=== PATIENT | male | born 1965 | race African-American/Black ===

== ENCOUNTER 2016-07-14 11:47 | Inpatient (IN) | payer OTHER ==
[2016-07-14 13:00] VITALS: BMI 25.5
--- NOTE | 2016-07-14 13:53 | HP ---
COWS - Scale Resting Pulse: 0= [place] 80 or Below Sweatin=Flushed/Facial Moisture Restless Observation: 1= Difficult to Sit Still Pupil Size: 0= Normal to Room Light Bone or Joint Aches: 2= Severe Diffuse Aches Runny Nose/ Eye Tearin= Runny Nose/Eyes GI Upset > 30mins: 1= Stomach Cramp Tremor Observation: 2= Slight Tremor Visible Yawning Observation: 2= >3x During Session Anxiety or Irritability: 2=Irritable/Anxious Goose Flesh Skin: 3=Piloerection COWS Score: 17 Admission ROS S - HPI Chief Complaint: I want detox and stay sober. Allergies/Adverse Reactions: Allergies Allergy/AdvReac Type Severity Reaction Status Date / Time No Known Allergies Allergy Verified 07/14/16 13:41 History of Present Illness: pt is a 50yr old male with a history of heroin and cocaine dependence seeking detox for treatment. Exam Limitations: No Limitations - Ebola screening Have you traveled outside of the country in the last 21 days: No Have you had contact with anyone from an Ebola affected area: No Have you been sick,other than usual withdrawal symptoms: No Do you have a fever: No - Review of Systems Constitutional: Diaphoresis, Night Sweats EENT: reports: No Symptoms Reported Respiratory: reports: No Symptoms reported Cardiac: reports: No Symptoms Reported GI: reports: Poor Appetite, Poor Fluid Intake : reports: No Symptoms Reported Musculoskeletal: reports: No Symptoms Reported Integumentary: reports: Flushing, Sweating Neuro: reports: Tingling, Tremors Endocrine: reports: Excessive Sweating, Flushing, Intolerance to Cold, Intolerance to Heat Hematology: reports: No Symptoms Reported Psychiatric: reports: Judgement Intact, Mood/Affect Appropiate, Orientated x3, Agitated, Anxious Other Systems: Reviewed and Negative Patient History - Patient Medical History Hx Anemia: No Hx Asthma: No Hx Chronic Obstructive Pulmonary Disease (COPD): No Hx Cancer: No Hx Cardiac Disorders: No Hx Congestive Heart Failure: No Hx Hypertension: No Hx Hypercholesterolemia: No Hx Pacemaker: No HX Cerebrovascular Accident: No Hx Seizures: No Hx Dementia: No Hx Diabetes: No Hx Gastrointestinal Disorders: No Hx Liver Disease: No Hx Genitourinary Disorders: No Hx Sexually Transmitted Disorders: No Hx Renal Disease (ESRD): No Hx Thyroid Disease: No Hx Human Immunodeficiency Virus (HIV): No (negative) Hx Hepatitis C: No (negative) Hx Depression: Yes Hx Suicide Attempt: No (denies) Hx Bipolar Disorder: No Hx Schizophrenia: No - Patient Surgical History Past Surgical History: No - PPD History Previous Implant?: Yes Documented Results: Negative w/o proof PPD to be Administered?: Yes - Reproductive History Patient is a Female of Child Bearing Age (11 -55 yrs old): No - Smoking Cessation Smoking history: Current every day smoker Have you smoked in the past 12 months: Yes Aproximately how many cigarettes per day: 10 Hx Chewing Tobacco Use: No Initiated information on smoking cessation: Yes 'Breaking Loose' booklet given: 07/14/16 - Substance & Tx. History Hx Alcohol Use: No Hx Substance Use: Yes Substance Use Type: Heroin Hx Substance Use Treatment: Yes - Substances Abused Heroin Route: Injection Frequency: Daily Amount used: 1 gm. Age of first use: 19 Date of Last Use: 07/14/16 Crack Route: Smoking Frequency: 1-2 times per week Amount used: $10 Age of first use: 19 Date of Last Use: 07/12/16 Family Disease History - Family Disease History Family History: Denies Admission Physical Exam S - Vital Signs Vital Signs: Vital Signs - 24 hr 07/14/16 12:57 Temperature 96 F L Pulse Rate 73 Respiratory 20 Rate Blood Pressure 120/73 - Physical General Appearance: Yes: Appropriately Dressed, Moderate Distress, Tremorous, Irritable, Sweating, Anxious HEENTM: Yes: Hearing grossly Normal, Normal Voice, Nasal Congestion Respiratory: Yes: No Respiratory Distress, Wheezing Neck: Yes: No masses,lesions,Nodules Breast: Yes: Within Normal Limits Cardiology: Yes: Regular Rhythm, Regular Rate, S1, S2 Abdominal: Yes: Normal Bowel Sounds, Non Tender, Flat, Soft Genitourinary: Yes: Within Normal Limits Back: Yes: Normal Inspection Musculoskeletal: Yes: full range of Motion Extremities: Yes: Normal Inspection, Non-Tender, Tremors Neurological: Yes: Fully Oriented, Normal Response Integumentary: Yes: Normal Color, Diaphoresis, Track Colon Lymphatic: Yes: Within Normal Limits - Diagnostic (1) Opioid dependence with withdrawal Current Visit: Yes Status: Chronic (2) Cocaine dependence Current Visit: Yes Status: Chronic Qualifiers: Substance use status: uncomplicated Qualified Code(s): F14.20 - Cocaine dependence, uncomplicated Cleared for Admission [facility] - Detox or Rehab [facility] Level of Care: Medically Managed Detox Regimen/Protocol: Methadone [facility] Breath Alcohol Content Breath Alcohol Content: 0 Urine Drug Screen - Results Drug Screen Negative: No Urine Drug Screen Results: LESA-Cocaine, OPI-Opiates, OXY-Oxycodone
[2016-07-14] MEDS ORDERED: hydrOXYzine PAMOATE 50 MG CAPSULE (FP) PO PRN (13:57)
[2016-07-14] MEDS ORDERED: ACETAMINOPHEN 325 MG TABLET (FP) PO PRN (13:57)
[2016-07-14] MEDS ORDERED: NICOTINE POLACRILEX 4 MG GUM BUC PRN (13:57)
[2016-07-14] MEDS ORDERED: IBUPROFEN 400 MG TABLET (FP) PO PRN (13:57)
[2016-07-14] MEDS ORDERED: MAGNESIUM HYDROX 2400MG/30ML ORAL SUSPENSION 30 ML CUP PO PRN (13:57)
[2016-07-14] MEDS ORDERED: MAGNESIUM CITRATE 300 ML BOTTLE PO PRN (13:57)
[2016-07-14] MEDS ORDERED: LOPERAMIDE HCL 2 MG CAPSULE PO PRN (13:57)
[2016-07-14] MEDS ORDERED: MAG HYDROX/AL HYDROX/SIMETH 30 ML UNIT-DOSE CUP PO PRN (13:57)
[2016-07-14] MEDS ORDERED: guaiFENesin/D-METHORPHAN HB 10 ML UNIT-DOSE CUPS PO PRN (13:57)
[2016-07-14] MEDS ORDERED: MENTHOL/PHENOL 1 EACH UD MM PRN (13:57)
[2016-07-14] MEDS ORDERED: P-EPHED 60MG/TRIPROLIDI 2.5MG TABLET PO PRN (13:57)
[2016-07-14] MEDS ORDERED: ALBUTEROL SO4 2.5/IPRATROPIUM 0.5 INH SOL 3 ML VIAL.NEB. NEB PRN (14:01)
--- NOTE | 2016-07-14 14:14 | CONSULT ---
[facility] Psychiatric Consult - Data Date of interview: 07/14/16 Admission source: [facility] Identifying data: This is 50 years old male with no psychiatric hospitalization history intoxicated with: Alcohol, Crack and Heroin Substance Abuse History: - Smoking Cessation. Smoking history: Current every day smoker. Have you smoked in the past 12 months: Yes. Aproximately how many cigarettes per day: 10. Hx Chewing Tobacco Use: No. Initiated information on smoking cessation: Yes. 'Breaking Loose' booklet given: 07/14/16. - Substance & Tx. History. Hx Alcohol Use: No. Hx Substance Use: Yes. Substance Use Type : Heroin. Hx Substance Use Treatment: Yes. - Substances Abused. Heroin. Route: Injection. Frequency: Daily. Amount used: 1 gm. Age of first use: 19. Date of Last Use: 07/14/16. Crack. Route: Smoking. Frequency: 1-2 times per week. Amount used: $10. Age of first use: 19. Date of Last Use: 07/12/16 Medical History: Denies any significant medical issues Psychiatric History: Reports history of depression., reportsa no medicqations taking prior to admission Physical/Sexual Abuse/Trauma History: Denies Additional Comment: Observation. Detox Unit Care protocol Mental Status Exam - Mental Status Exam Alert and Oriented to: Person Cognitive Function: Fair Patient Appearance: Well Groomed Mood: Apprehensive Affect: Mood Congruent Patient Behavior: Cooperative Speech Pattern: Appropriate Voice Loudness: Normal Thought Process: Goal Oriented Thought Disorder: Being Controlled Hallucinations: Denies Suicidal Ideation: Denies Homicidal Ideation: Denies Insight/Judgement: Fair Sleep: Difficulty falling asleep Appetite: Fair Muscle strength/Tone: Normal Gait/Station: Normal Additional Comments: Observation. Detox Unit Care protocol Psychiatric Findings - Problem List ([place] 1, 2,3) (1) Cocaine dependence Current Visit: Yes Status: Chronic Qualifiers: Substance use status: uncomplicated Qualified Code(s): F14.20 - Cocaine dependence, uncomplicated (2) Opioid dependence with withdrawal Current Visit: Yes Status: Chronic (3) Alcohol dependence Current Visit: Yes Status: Acute (4) Drug-induced mood disorder Current Visit: Yes Status: Acute - Initial Treatment Plan Initial Treatment Plan: Observation. Detox Unit Care protocol
[2016-07-14] MEDS ORDERED: ALBUTEROL SO4 2.5/IPRATROPIUM 0.5 INH SOL 3 ML VIAL.NEB. NEB ONE (14:20)
[2016-07-14] MEDS ORDERED: METHADONE HCL 10 MG TABLET (FOR DETOX USE ONLY) PO ONE ×2 (14:21→23:00)
[2016-07-14] MEDS: diazePAM 5 MG TABLET PO PRN ×2 (15:07→22:43)
[2016-07-14] MEDS: THIAMINE HCL 100 MG TABLET (FP) PO SCH (22:43)
--- NOTE | 2016-07-15 00:27 | EKG ---
Test Reason : Blood Pressure : / mmHG Vent. Rate : 059 BPM Atrial Rate : 059 BPM P-R Int : 140 ms QRS Dur : 090 ms QT Int : 426 ms P-R-T Axes : 062 055 050 degrees QTc Int : 421 ms SINUS BRADYCARDIA OTHERWISE NORMAL ECG NO PREVIOUS ECGS AVAILABLE Confirmed by TIFFANIE ZAMORA MD ([id number]) on 07/15/2016 12:27:33 AM Referred By: Confirmed By:TIFFANIE ZAMORA MD
[2016-07-15] MEDS: diazePAM 5 MG TABLET PO PRN ×2 (05:53→10:29)
[2016-07-15] MEDS ORDERED: METHADONE HCL 10 MG TABLET (FOR DETOX USE ONLY) PO ONE (10:00)
[2016-07-15] MEDS: NICOTINE 21 MG/24 HOURS TOPICAL PATCH TD SCH (10:29)
[2016-07-15] MEDS: PRENATAL VITAMINS W/ FOLIC ACID TABLET (FP) PO SCH (10:29)
--- NOTE | 2016-07-15 10:46 | PN ---
BHS COWS - Scale Resting Pulse: 0= [place] 80 or Below Sweatin= Chills/Flushing Restless Observation: 3= Extraneous Movement Pupil Size: 2= Moderately Dilated Bone or Joint Aches: 4=Acute Joint/Muscle Pain Runny Nose/ Eye Tearin= Nasal Congestion GI Upset > 30mins: 1= Stomach Cramp Tremor Observation of Outstretched Hands: 2= Slight Tremor Visible Yawning Observation: 2= >3x During Session Anxiety or Irritability: 2=Irritable/Anxious Goose Flesh Skin: 0=Smooth Skin COWS Score: 18 BHS Progress Note (SOAP) Subjective: ANXIETY,SWEATS/CHILLS, FATIGUE, INTERMITTENT SLEEP. Objective: 07/15/16 10:45 Vital Signs Temperature 97.7 F 07/15/16 10:41 Pulse Rate 74 07/15/16 10:41 Respiratory Rate 18 07/15/16 10:41 Blood Pressure 136/78 07/15/16 10:41 O2 Sat by Pulse Oximetry (%) LABS PENDING. Assessment: 07/15/16 10:46 WITHDRAWAL SX Plan: CONTINUE DETOX
[2016-07-15 16:00] LABS: URINE APPEARANCE SLCLOUDY; URINE BILIRUBIN NEGATIVE (NEGATIVE); URINE BLOOD NEGATIVE (NEGATIVE); URINE COLOR LTYELLOW; URINE GLUCOSE (UA) NEGATIVE (NEGATIVE); URINE KETONE NEGATIVE (NEGATIVE); URINE NITRITE NEGATIVE (NEGATIVE); URINE UROBILINOGEN NEGATIVE E.U./dl (0.2-1.0)
[2016-07-15 16:01] LABS: URINE LEUK ESTERASE 2+ (NEGATIVE); URINE PROTEIN 1+ (NEGATIVE)
[2016-07-15 16:06] LABS: URINE MUCUS RARE; URINE RBC 4 /hpf (0-3); URINE WBC 93 /hpf (3-5)
[2016-07-15] MEDS: THIAMINE HCL 100 MG TABLET (FP) PO SCH (22:41)
[2016-07-16] MEDS: diphenhydrAMINE HCL 50 MG CAPSULE PO PRN (00:26)
[2016-07-16] MEDS: diazePAM 5 MG TABLET PO PRN ×2 (00:26→10:40)
[2016-07-16] MEDS ORDERED: CYCLOBENZAPRINE HCL 10 MG TABLET (FP) PO PRN (02:35)
[2016-07-16] MEDS ORDERED: METHADONE HCL 5 MG TABLET (FOR DETOX USE ONLY) PO ONE (10:00)
--- NOTE | 2016-07-16 10:05 | PN ---
BHS COWS - Scale Resting Pulse: 0= [place] 80 or Below Sweatin= Chills/Flushing Restless Observation: 3= Extraneous Movement Pupil Size: 2= Moderately Dilated Bone or Joint Aches: 4=Acute Joint/Muscle Pain Runny Nose/ Eye Tearin= Nasal Congestion GI Upset > 30mins: 1= Stomach Cramp Tremor Observation of Outstretched Hands: 2= Slight Tremor Visible Yawning Observation: 2= >3x During Session Anxiety or Irritability: 2=Irritable/Anxious Goose Flesh Skin: 0=Smooth Skin COWS Score: 18 BHS Progress Note (SOAP) Subjective: ANXIETY,SWEATS,IRRITABILITY,RESTLESS,INTERMITTENT SLEEP,LOST APPETITE. Objective: 07/16/16 10:05 Vital Signs Temperature 97.9 F 07/16/16 09:50 Pulse Rate 56 L 07/16/16 09:50 Respiratory Rate 18 07/16/16 09:50 Blood Pressure 139/89 07/16/16 09:50 O2 Sat by Pulse Oximetry (%) Laboratory Last Values Urine Color Ltyellow 07/15/16 13:25 Urine Appearance Slcloudy 07/15/16 13:25 Urine pH 9.0 (5.0-8.0) H 07/15/16 13:25 Ur Specific [place] 1.015 (1.001-1.035) 07/15/16 13:25 Urine Protein 1+ (NEGATIVE) H 07/15/16 13:25 Urine Glucose (UA) Negative (NEGATIVE) 07/15/16 13:25 Urine Ketones Negative (NEGATIVE) 07/15/16 13:25 Urine Blood Negative (NEGATIVE) 07/15/16 13:25 Urine Nitrite Negative (NEGATIVE) 07/15/16 13:25 Urine Bilirubin Negative (NEGATIVE) 07/15/16 13:25 Urine Urobilinogen Negative E.U./dl (0.2-1.0) 07/15/16 13:25 Ur Leukocyte Esterase 2+ (NEGATIVE) H 07/15/16 13:25 Urine RBC 4 /hpf (0-3) 07/15/16 13:25 Urine WBC 93 /hpf (3-5) 07/15/16 13:25 Urine Mucus Rare 07/15/16 13:25 UA NOTED BLOOD WORK PENDING --UNABLE TO OBTAIN BLOOD FROM PT PER PHLEBOTOMY REPORT. "WILL TRY AGAIN". Assessment: 07/16/16 10:05 WITHDRAWAL SX Plan: CONTINUE DETOX INCREASE PO FLUIDS REPEAT UA;UC TODAY.
[2016-07-16] MEDS: PRENATAL VITAMINS W/ FOLIC ACID TABLET (FP) PO SCH (10:40)
[2016-07-16] MEDS: NICOTINE 21 MG/24 HOURS TOPICAL PATCH TD SCH (10:42)
[2016-07-16] MEDS: cloNIDine HCL 0.1 MG TABLET PO SCH ×2 (10:42→23:20)
[2016-07-16] MEDS: CYCLOBENZAPRINE HCL 10 MG TABLET (FP) PO SCH ×2 (13:42→23:20)
[2016-07-16 19:23] LABS: URINE APPEARANCE CLOUDY; URINE BILIRUBIN NEGATIVE (NEGATIVE); URINE COLOR YELLOW; URINE GLUCOSE (UA) 1+ (NEGATIVE); URINE KETONE 2+ (NEGATIVE); URINE NITRITE NEGATIVE (NEGATIVE); URINE UROBILINOGEN NEGATIVE E.U./dl (0.2-1.0)
[2016-07-16 19:29] LABS: URINE BLOOD 2+ (NEGATIVE); URINE LEUK ESTERASE 3+ (NEGATIVE); URINE PROTEIN 2+ (NEGATIVE)
[2016-07-16 19:36] LABS: URINE BACTERIA RARE /hpf (NONE SEEN); URINE MUCUS MANY; URINE RBC 100 /hpf (0-3); URINE WBC 239 /hpf (3-5)
[2016-07-16] MEDS: THIAMINE HCL 100 MG TABLET (FP) PO SCH (23:21)
[2016-07-17] MEDS: CYCLOBENZAPRINE HCL 10 MG TABLET (FP) PO SCH ×3 (06:07→23:02)
[2016-07-17] MEDS: diazePAM 5 MG TABLET PO PRN (06:07)
[2016-07-17] MEDS ORDERED: METHADONE HCL 5 MG TABLET (FOR DETOX USE ONLY) PO ONE (10:00)
[2016-07-17] MEDS: PRENATAL VITAMINS W/ FOLIC ACID TABLET (FP) PO SCH (10:57)
[2016-07-17] MEDS: cloNIDine HCL 0.1 MG TABLET PO SCH ×2 (10:57→23:02)
[2016-07-17] MEDS: NICOTINE 21 MG/24 HOURS TOPICAL PATCH TD SCH (10:58)
--- NOTE | 2016-07-17 11:36 | PN ---
BHS Progress Note (SOAP) Subjective: ANXIETY,TREMORS, SWEATS, DECREASED RESTLESSNESS, INTERMITTENT SLEEP. DENIES DYSURIA OR BURNING/PAIN ON URINATION. Objective: 07/17/16 11:36 Vital Signs Temperature 97.9 F 07/17/16 10:27 Pulse Rate 85 07/17/16 10:27 Respiratory Rate 18 07/17/16 10:27 Blood Pressure 111/75 07/17/16 10:27 O2 Sat by Pulse Oximetry (%) Laboratory Last Values Urine Color Yellow 07/16/16 15:23 Urine Appearance Cloudy 07/16/16 15:23 Urine pH 6.0 (5.0-8.0) D 07/16/16 15:23 Ur Specific [place] 1.023 (1.001-1.035) 07/16/16 15:23 Urine Protein 2+ (NEGATIVE) H 07/16/16 15:23 Urine Glucose (UA) 1+ (NEGATIVE) H 07/16/16 15:23 Urine Ketones 2+ (NEGATIVE) H 07/16/16 15:23 Urine Blood 2+ (NEGATIVE) H 07/16/16 15:23 Urine Nitrite Negative (NEGATIVE) 07/16/16 15:23 Urine Bilirubin Negative (NEGATIVE) 07/16/16 15:23 Urine Urobilinogen Negative E.U./dl (0.2-1.0) 07/16/16 15:23 Ur Leukocyte Esterase 3+ (NEGATIVE) H 07/16/16 15:23 Urine RBC 100 /hpf (0-3) 07/16/16 15:23 Urine WBC 239 /hpf (3-5) 07/16/16 15:23 Ur Epithelial Cells Rare /hpf (FEW) 07/16/16 15:23 Urine Bacteria Rare /hpf (NONE SEEN) 07/16/16 15:23 Urine Mucus Many 07/16/16 15:23 UA NOTED UC PENDING Assessment: 07/18/16 11:47 WITHDRAWAL SX Plan: CONTINUE DETOX. F/U UA;UC.
[2016-07-17] MEDS: THIAMINE HCL 100 MG TABLET (FP) PO SCH (23:02)
[2016-07-18] MEDS: LEVOFLOXACIN 250 MG TABLET (FP) PO SCH (06:09)
[2016-07-18] MEDS: CYCLOBENZAPRINE HCL 10 MG TABLET (FP) PO SCH ×3 (06:09→22:26)
[2016-07-18] MEDS ORDERED: METHADONE HCL 10 MG TABLET (FOR DETOX USE ONLY) PO ONE (10:00)
[2016-07-18] MEDS: PRENATAL VITAMINS W/ FOLIC ACID TABLET (FP) PO SCH (10:28)
[2016-07-18] MEDS: NICOTINE 21 MG/24 HOURS TOPICAL PATCH TD SCH (10:28)
[2016-07-18] MEDS: cloNIDine HCL 0.1 MG TABLET PO SCH ×2 (10:28→22:26)
--- NOTE | 2016-07-18 11:44 | PN ---
BHS Progress Note (SOAP) Subjective: ANXIETY,SWEATS/CHILLS. Objective: 07/18/16 11:38 Vital Signs Temperature 97.1 F L 07/18/16 10:47 Pulse Rate 77 07/18/16 10:47 Respiratory Rate 18 07/18/16 10:47 Blood Pressure 120/76 07/18/16 10:47 O2 Sat by Pulse Oximetry (%) Laboratory Tests 07/15/16 07/16/16 13:25 15:23 Urine Color Ltyellow Yellow Urine Appearance Slcloudy Cloudy Urine pH 9.0 H 6.0 D Ur Specific [place] 1.015 1.023 Urine Protein 1+ H 2+ H Urine Glucose (UA) Negative 1+ H Urine Ketones Negative 2+ H Urine Blood Negative 2+ H Urine Nitrite Negative Negative Urine Bilirubin Negative Negative Urine Urobilinogen Negative Negative Ur Leukocyte Esterase 2+ H 3+ H Urine RBC 4 100 Urine WBC 93 239 Ur Epithelial Cells Rare Urine Bacteria Rare Urine Mucus Rare Many UC: <10,000 CFU/ML Assessment: 07/18/16 11:38 WITHDRAWAL SX LEUCOCYTURIA LEUK NEIL OCCULT HEMATURIA Plan: CONTINUE DETOX CIPRO DIRECTED
[2016-07-18] MEDS: diphenhydrAMINE HCL 50 MG CAPSULE PO PRN (22:25)
[2016-07-18] MEDS: THIAMINE HCL 100 MG TABLET (FP) PO SCH (22:26)
[2016-07-19] MEDS: LEVOFLOXACIN 250 MG TABLET (FP) PO SCH (05:52)
[2016-07-19] MEDS: CYCLOBENZAPRINE HCL 10 MG TABLET (FP) PO SCH (05:52)
[2016-07-19] MEDS ORDERED: METHADONE HCL 5 MG TABLET (FOR DETOX USE ONLY) PO ONE (06:00)
[2016-07-19 09:38] VITALS: BP 108/69; PULSE 65; TEMP 96.2
--- NOTE | 2016-07-19 09:41 | DS ---
[facility] Detox Discharge Summary Admission Date: 07/14/16 Discharge Date: 07/19/16 - History Present History: Opioid Dependence Pertinent Past History: mood disorder - Physical Exam Results Vital Signs: Vital Signs Temperature 96.7 F L 07/19/16 07:11 Pulse Rate 72 07/19/16 07:11 Respiratory Rate 18 07/19/16 07:11 Blood Pressure 103/66 07/19/16 07:11 O2 Sat by Pulse Oximetry (%) Pertinent Admission Physical Exam Findings: Withdrawal sx. Microbiology 07/16/16 15:23 Urine Culture - Final Urine - Urine Clean Catch Microbiology 07/16/16 15:23 Urine - Urine Clean Catch Urine Culture - Final < 10,000 cfu - Treatment Hospital Course: Detox Protocol Followed, Detoxed Safely, Responded well, Discharged Condition Good, Rehab Referral Accepted - Medication Discharge Medications: Ambulatory Orders NK [No Known Home Medication] 07/14/16 - Diagnosis (1) Drug-induced mood disorder Current Visit: Yes Status: Acute (2) Cocaine dependence Current Visit: Yes Status: Chronic Qualifiers: Substance use status: uncomplicated Qualified Code(s): F14.20 - Cocaine dependence, uncomplicated (3) Opioid dependence with withdrawal Current Visit: Yes Status: Chronic - AMA Did Patient Leave Against Medical Advice: No
[2016-07-19] MEDS: NICOTINE 21 MG/24 HOURS TOPICAL PATCH TD SCH (10:26)
[2016-07-19] MEDS: PRENATAL VITAMINS W/ FOLIC ACID TABLET (FP) PO SCH (10:26)
[2016-07-19] MEDS: cloNIDine HCL 0.1 MG TABLET PO SCH (10:26)
== END 2016-07-19 12:07 | disposition other institution (70) | DRG 773 ==
LOC: YASAS 11:47 → Y3N 14:07
PROVIDERS: ADMIT Internal Medicine; ATTEND Internal Medicine
PROC: HZ2ZZZZ Detoxification Services for Substance Abuse Treatment (ICD-10-PCS; principal; 2016-07-19)
DX: F11.23 Opioid dependence with withdrawal (principal); F10.20 Alcohol dependence, uncomplicated; F14.20 Cocaine dependence, uncomplicated; F19.24 Other psychoactive substance dependence with psychoactive substance-induced mood disorder
CPT/HCPCS: 81003; 81015; 87086; 93005; 93010; 94640

== ENCOUNTER 2016-07-19 12:35 | Inpatient (IN) | payer OTHER ==
[2016-07-19] MEDS ORDERED: MAGNESIUM CITRATE 300 ML BOTTLE PO PRN (13:28)
[2016-07-19] MEDS ORDERED: IBUPROFEN 400 MG TABLET (FP) PO PRN (13:28)
[2016-07-19] MEDS ORDERED: P-EPHED 60MG/TRIPROLIDI 2.5MG TABLET PO PRN (13:28)
[2016-07-19] MEDS ORDERED: LOPERAMIDE HCL 2 MG CAPSULE PO PRN (13:28)
[2016-07-19] MEDS ORDERED: NICOTINE POLACRILEX 2 MG GUM BUC PRN (13:28)
[2016-07-19] MEDS ORDERED: MAGNESIUM HYDROX 2400MG/30ML ORAL SUSPENSION 30 ML CUP PO PRN (13:28)
[2016-07-19] MEDS ORDERED: MAG HYDROX/AL HYDROX/SIMETH 30 ML UNIT-DOSE CUP PO PRN (13:28)
[2016-07-19] MEDS ORDERED: ACETAMINOPHEN 325 MG TABLET (FP) PO PRN (13:28)
[2016-07-19] MEDS ORDERED: MENTHOL/PHENOL 1 EACH UD MM PRN (13:28)
[2016-07-19] MEDS ORDERED: guaiFENesin/D-METHORPHAN HB 10 ML UNIT-DOSE CUPS PO PRN (13:28)
--- NOTE | 2016-07-19 13:34 | HP ---
[facility] Rehab Assess/Revision - Admission History Admitted to Rehab from: [facility] Date of Admission to Rehab: 07/19/16 - Vital signs Vital Signs: Vital Signs Period Temp Pulse Resp BP Sys/Hoffmann Pulse Ox Last 24 Hr 97.7 F 73 18 106/62 - Findings Detox History & Physical reviewed: Yes Concur with findings: Yes
[2016-07-19] MEDS: diphenhydrAMINE HCL 50 MG CAPSULE PO PRN (21:39)
[2016-07-19] MEDS: THIAMINE HCL 100 MG TABLET (FP) PO SCH (21:39)
[2016-07-20] MEDS: LEVOFLOXACIN 500 MG TABLET (FP) PO SCH (06:49)
[2016-07-20] MEDS: NICOTINE 21 MG/24 HOURS TOPICAL PATCH TD SCH (09:44)
[2016-07-20] MEDS: PRENATAL VITAMINS W/ FOLIC ACID TABLET (FP) PO SCH (09:44)
[2016-07-20 10:41] LABS: ALBUMIN 3.7 g/dl (3.4-5.0); ALK PHOS 143 U/L (45-117); ANION GAP 11 (8-16); BILIRUBIN,TOTAL 0.5 mg/dL (0.2-1.0); CALCIUM 9.5 mg/dL (8.5-10.1); CO2 25 mmol/L (21-32); GLUCOSE,RANDOM 76 mg/dL (74-106); SGPT/ALT 30 U/L (12-78); TOT PROT 7.8 g/dl (6.4-8.2)
[2016-07-20 10:56] LABS: SGOT/AST 26 U/L (15-37)
[2016-07-20] MEDS: THIAMINE HCL 100 MG TABLET (FP) PO SCH (22:04)
[2016-07-21] MEDS: diphenhydrAMINE HCL 50 MG CAPSULE PO PRN (01:30)
[2016-07-21] MEDS: LEVOFLOXACIN 500 MG TABLET (FP) PO SCH (06:26)
[2016-07-21] MEDS: PRENATAL VITAMINS W/ FOLIC ACID TABLET (FP) PO SCH (09:35)
[2016-07-21] MEDS: NICOTINE 21 MG/24 HOURS TOPICAL PATCH TD SCH (09:36)
[2016-07-21] MEDS ORDERED: hydrOXYzine PAMOATE 50 MG CAPSULE (FP) PO PRN (13:55)
--- NOTE | 2016-07-21 14:04 | HP ---
[id number] Identifying data: This is the first 5N inpatient rehabilitation admission for this 50 year old black male father of 2, residing alone in the [place] apartment. Medical History: no major medcal issues, smokes cigarettes 1PPD. Psychiatric History: Patient reports history of treatment for anxiety and depression, states he was treated 3 years ago while in rehabilitation treatment, was on lexapro with fair response. He still anxious and depressed, unable to sleep and willing to restart medications, no history of psychiatric hospitalizations. Physical/Sexual Abuse/Trauma History: Denies history of sexual, physical and verbal abuse. Vital Signs: Vital Signs - 24 hr 07/21/16 07/21/16 07/21/16 00:30 03:30 06:44 Temperature 98.1 F Pulse Rate 56 L Respiratory 18 18 18 Rate Blood Pressure 120/84 Allergies/Adverse Reactions: Allergies Allergy/AdvReac Type Severity Reaction Status Date / Time No Known Allergies Allergy Verified 07/19/16 12:48 Date of last physical exam: 07/16/16 Concur with the findings of this exam: Yes - Substance Abuse/Tx History Hx Alcohol Use: No Hx Substance Use: Yes Substance Use Type: Cocaine ("every now and there"), Heroin (IV use 15 bags daily.) Hx Substance Use Treatment: Yes - Admission Criteria Previous failed treatment: Yes Poor recovery environment: Yes Comorbidities: No Lacks judgement: Yes Mental Status Exam - Mental Status Exam Alert and Oriented to: Time, Place, Person Cognitive Function: Good Patient Appearance: Well Groomed Mood: Depressed, Sad, Anxious Patient Behavior: Appropriate, Cooperative Speech Pattern: Clear, Appropriate Voice Loudness: Normal Thought Process: Intact, Goal Oriented Thought Disorder: Not Present Hallucinations: Denies Suicidal Ideation: Denies Homicidal Ideation: Denies Insight/Judgement: Fair Sleep: Poorly, Difficulty falling asleep Appetite: Poor, Weight loss Muscle strength/Tone: Normal Gait/Station: Normal Psychiatric Findings - Problem List ([place] 1, 2,3) (1) Cocaine dependence Current Visit: No Status: Chronic Qualifiers: Substance use status: uncomplicated Qualified Code(s): F14.20 - Cocaine dependence, uncomplicated (2) Opioid dependence Current Visit: Yes Status: Acute (3) CHELO (generalized anxiety disorder) Current Visit: Yes Status: Acute - Initial Treatment Plan Initial Treatment Plan: will restart Lexapro 10 mg po daily, Remeron 15 mg po hs , Vistaril 50 mg po q 4hrs for anxiety, side-effects/benefits discussed with the patient, will monitor progress as needed.
[2016-07-21 14:38] LABS: EOSINOPHIL 1.5 % (0-4.5); MCH 26.6 pg (25.7-33.7); MCHC 32.5 g/dl (32.0-35.9); MEAN CELL VOLUME 81.7 fl (80-96); MEAN PLT VOLUME 7.7 fl (7.5-11.1); NEUTROPHILS 65.7 % (42.8-82.8); PLATELET COUNT 263 K/MM3 (134-434); WHITE BLOOD COUNT 11.7 K/mm3 (4.0-10.0)
[2016-07-21] MEDS: MIRTAZAPINE 15 MG TABLET (FP) PO SCH (21:18)
[2016-07-21] MEDS: THIAMINE HCL 100 MG TABLET (FP) PO SCH (21:18)
[2016-07-21] MEDS: hydrOXYzine PAMOATE 50 MG CAPSULE (FP) PO PRN (21:18)
[2016-07-22] MEDS: LEVOFLOXACIN 500 MG TABLET (FP) PO SCH (06:23)
[2016-07-22] MEDS: PRENATAL VITAMINS W/ FOLIC ACID TABLET (FP) PO SCH (09:50)
[2016-07-22] MEDS: ESCITALOPRAM OXALATE 10 MG TABLET (FP) PO SCH (09:50)
[2016-07-22] MEDS: NICOTINE 21 MG/24 HOURS TOPICAL PATCH TD SCH (09:50)
[2016-07-22] MEDS: hydrOXYzine PAMOATE 50 MG CAPSULE (FP) PO PRN (14:37)
[2016-07-22] MEDS: THIAMINE HCL 100 MG TABLET (FP) PO SCH (21:22)
[2016-07-22] MEDS: MIRTAZAPINE 15 MG TABLET (FP) PO SCH (21:22)
[2016-07-22] MEDS: diphenhydrAMINE HCL 50 MG CAPSULE PO PRN (21:23)
[2016-07-23] MEDS: LEVOFLOXACIN 500 MG TABLET (FP) PO SCH (08:02)
[2016-07-23] MEDS: PRENATAL VITAMINS W/ FOLIC ACID TABLET (FP) PO SCH (09:52)
[2016-07-23] MEDS: ESCITALOPRAM OXALATE 10 MG TABLET (FP) PO SCH (09:53)
[2016-07-23] MEDS: NICOTINE 21 MG/24 HOURS TOPICAL PATCH TD SCH (09:53)
[2016-07-23] MEDS: hydrOXYzine PAMOATE 50 MG CAPSULE (FP) PO PRN ×3 (10:35→21:08)
--- NOTE | 2016-07-23 10:41 | PN ---
Psychiatric Progress Note Vital Signs: Vital Signs Period Temp Pulse Resp BP Sys/Hoffmann Pulse Ox Last 24 Hr 18-18 Date of Session: 07/23/16 Chief Complaint:: "insomnia" HPI: Patient is addressing cocaine, opioid dependence comorbid CHELO. ROS: WNL Current Medications: Active Medications Generic Name Dose Route Start Last Admin Trade Name Freq PRN Reason Stop Dose Admin Acetaminophen 650 mg 07/19/16 13:28 Tylenol - PO Q4H PRN FEVER OR PAIN Al Hydroxide/Mg Hydroxide 30 ml 07/19/16 13:28 Mylanta Oral Suspension - PO Q6H PRN DYSPEPSIA Diphenhydramine HCl 50 mg 07/19/16 22:00 07/22/16 21:23 Benadryl - PO 50 mg HSMR1 PRN Administration FOR ITCHING Escitalopram Oxalate 10 mg 07/22/16 10:00 07/23/16 09:53 Lexapro - PO 10 mg DAILY IMELDA Administration Eucalyptus/Menthol/Phenol/Sorbitol 1 each 07/19/16 13:28 Cepastat Lozenge - MM Q4H PRN SORE THROAT Guaifenesin 10 ml 07/19/16 13:28 Robitussin Dm - PO Q6H PRN COUGH Hydroxyzine Pamoate 50 mg 07/21/16 15:54 07/22/16 14:37 Vistaril - PO 50 mg Q4H PRN Administration ANXIETY Ibuprofen 400 mg 07/19/16 13:28 Motrin - PO Q6H PRN PAIN Levofloxacin 500 mg 07/20/16 06:00 07/23/16 08:02 Levaquin - PO Not Given DAILY@0600 IMELDA Loperamide HCl 4 mg 07/19/16 13:28 Imodium - PO Q6H PRN DIARRHEA Magnesium Hydroxide 30 ml 07/19/16 13:28 Milk Of Magnesia - PO DAILY PRN CONSTIPATION Nicotine 21 mg 07/20/16 10:00 07/23/16 09:53 Nicoderm Patch - TD Not Given DAILY IMELDA Nicotine Polacrilex 2 mg 07/19/16 13:28 Nicorette Gum - BUC Q2H PRN NICOTINE REPLACEMENT RX Multivit/Folic Acid/Iron 1 tab 07/20/16 10:00 07/23/16 09:52 Vitamins (Sjr) - PO 1 tab DAILY IMELDA Administration Pseudoephedrine/Triprolidine 1 combo 07/19/16 13:28 Actifed - PO TID PRN NASAL CONGESTION Thiamine HCl 100 mg 07/19/16 22:00 07/22/16 21:22 Vitamin B1 - PO 100 mg HS IMELDA Administration Trazodone HCl 50 mg 07/23/16 22:00 Desyrel - PO HS IMELDA Current Side Effect: No Lab tests ordered: No Lab tests reviewed: Yes Provider note:: Patient reports he is unable to sleep, remeron not effective and patient recalls while at [facility] was on Trazodone with better reponse. Reports he has difficult time here "I am still not feeling well" reports he is irritable, body aches. Will d/c Remeron, start Trazodone , psychoeducation regarding side-effects of Trazodone discussed with the patient.Psychotherapy and supports provided. Total face to face time:: 35 Mental Status Exam - Mental Status Exam Alert and Oriented to: Time, Place, Person Cognitive Function: Good Patient Appearance: Well Groomed Mood: Hopeful Affect: Appropriate, Mood Congruent, Normal Range Patient Behavior: Appropriate, Cooperative Speech Pattern: Clear, Appropriate Voice Loudness: Normal Thought Process: Intact, Goal Oriented Thought Disorder: Not Present Hallucinations: Denies Suicidal Ideation: Denies Homicidal Ideation: Denies Insight/Judgement: Fair Sleep: Fair Appetite: Good Muscle strength/Tone: Normal Gait/Station: Normal Psychiatric Treatment Plan - Problem List (1) Cocaine dependence Current Visit: No Qualifiers: Substance use status: uncomplicated Qualified Code(s): F14.20 - Cocaine dependence, uncomplicated (2) Opioid dependence Current Visit: Yes (3) CHELO (generalized anxiety disorder) Current Visit: Yes
[2016-07-23] MEDS: traZODone HCL 50 MG TABLET (FP) PO SCH (21:08)
[2016-07-23] MEDS: THIAMINE HCL 100 MG TABLET (FP) PO SCH (21:08)
[2016-07-24] MEDS: LEVOFLOXACIN 500 MG TABLET (FP) PO SCH (06:16)
[2016-07-24] MEDS: hydrOXYzine PAMOATE 50 MG CAPSULE (FP) PO PRN (09:46)
[2016-07-24] MEDS: ESCITALOPRAM OXALATE 10 MG TABLET (FP) PO SCH (09:46)
[2016-07-24] MEDS: PRENATAL VITAMINS W/ FOLIC ACID TABLET (FP) PO SCH (09:46)
[2016-07-24] MEDS: NICOTINE 21 MG/24 HOURS TOPICAL PATCH TD SCH (09:47)
[2016-07-24] MEDS ORDERED: cloNIDine HCL 0.1 MG TABLET PO ONE (15:11)
[2016-07-24] MEDS: traZODone HCL 50 MG TABLET (FP) PO SCH (22:07)
[2016-07-24] MEDS: THIAMINE HCL 100 MG TABLET (FP) PO SCH (22:07)
[2016-07-24] MEDS: cloNIDine HCL 0.1 MG TABLET PO SCH (22:07)
[2016-07-25] MEDS: LEVOFLOXACIN 500 MG TABLET (FP) PO SCH (06:29)
[2016-07-25] MEDS: ESCITALOPRAM OXALATE 10 MG TABLET (FP) PO SCH (09:40)
[2016-07-25] MEDS: PRENATAL VITAMINS W/ FOLIC ACID TABLET (FP) PO SCH (09:40)
[2016-07-25] MEDS: NICOTINE 21 MG/24 HOURS TOPICAL PATCH TD SCH (09:41)
[2016-07-25] MEDS: cloNIDine HCL 0.1 MG TABLET PO SCH ×2 (09:41→21:32)
[2016-07-25] MEDS: CYCLOBENZAPRINE HCL 10 MG TABLET (FP) PO PRN ×2 (14:11→21:33)
[2016-07-25] MEDS: THIAMINE HCL 100 MG TABLET (FP) PO SCH (21:32)
[2016-07-25] MEDS: traZODone HCL 50 MG TABLET (FP) PO SCH (21:32)
[2016-07-25 22:30] LABS: URINE APPEARANCE CLOUDY; URINE BILIRUBIN NEGATIVE (NEGATIVE); URINE COLOR YELLOW; URINE GLUCOSE (UA) NEGATIVE (NEGATIVE); URINE KETONE NEGATIVE (NEGATIVE); URINE NITRITE NEGATIVE (NEGATIVE); URINE UROBILINOGEN NEGATIVE E.U./dl (0.2-1.0)
[2016-07-25 22:32] LABS: URINE BLOOD 1+ (NEGATIVE); URINE LEUK ESTERASE 3+ (NEGATIVE); URINE PROTEIN 2+ (NEGATIVE)
[2016-07-25 22:35] LABS: CALCIUM OXALATE CRYSTALS MODERATE /hpf (NONE SEEN); URINE MUCUS MANY; URINE RBC 164 /hpf (0-3); URINE WBC 1186 /hpf (3-5)
[2016-07-26] MEDS: LEVOFLOXACIN 500 MG TABLET (FP) PO SCH (06:55)
[2016-07-26] MEDS: hydrOXYzine PAMOATE 50 MG CAPSULE (FP) PO PRN (06:55)
[2016-07-26] MEDS: CYCLOBENZAPRINE HCL 10 MG TABLET (FP) PO PRN (06:55)
[2016-07-26 07:14] VITALS: TEMP 97.9
[2016-07-26 08:57] VITALS: BP 125/78; PULSE 80
[2016-07-26] MEDS: ESCITALOPRAM OXALATE 10 MG TABLET (FP) PO SCH (09:52)
[2016-07-26] MEDS: PRENATAL VITAMINS W/ FOLIC ACID TABLET (FP) PO SCH (09:52)
[2016-07-26] MEDS: cloNIDine HCL 0.1 MG TABLET PO SCH (09:52)
[2016-07-26] MEDS: NICOTINE 21 MG/24 HOURS TOPICAL PATCH TD SCH (09:53)
--- NOTE | 2016-07-26 13:26 | PN ---
Psychiatric Progress Note Vital Signs: Vital Signs Period Temp Pulse Resp BP Sys/Hoffmann Pulse Ox Last 24 Hr 97.9 F 80-86 18-18 125-137/71-78 Date of Session: 07/26/16 Chief Complaint:: Follow up visit (early discharge) HPI: Case of a 50 y/o AA male who decided to terminate rehabilitation care at [address] for personal reasons.Admitted to [address] [place] [address] to address cocaine dependence,heroin dependence co-morbid with generalized anxiety disorder. ROS: Unremarkable.Patient is ambulatory.Steady.Cognitively intact.Complaint : dental pain.Mr Delaney reports that " motrin is not working for me " and he decides to leave to go to his dentist on this day.Normal vitals. Current Medications: Active Medications Generic Name Dose Route Start Last Admin Trade Name Freq PRN Reason Stop Dose Admin Acetaminophen 650 mg 07/19/16 13:28 Tylenol - PO Q4H PRN FEVER OR PAIN Al Hydroxide/Mg Hydroxide 30 ml 07/19/16 13:28 Mylanta Oral Suspension - PO Q6H PRN DYSPEPSIA Clonidine 0.1 mg 07/24/16 22:00 07/26/16 09:52 Catapres - PO 0.1 mg BID IMELDA Administration Cyclobenzaprine HCl 10 mg 07/25/16 11:37 07/26/16 06:55 Flexeril - PO 10 mg TID PRN Administration MUSCLE SPASMS Diphenhydramine HCl 50 mg 07/19/16 22:00 07/22/16 21:23 Benadryl - PO 50 mg HSMR1 PRN Administration FOR ITCHING Escitalopram Oxalate 10 mg 07/22/16 10:00 07/26/16 09:52 Lexapro - PO 10 mg DAILY IMELDA Administration Eucalyptus/Menthol/Phenol/Sorbitol 1 each 07/19/16 13:28 Cepastat Lozenge - MM Q4H PRN SORE THROAT Guaifenesin 10 ml 07/19/16 13:28 Robitussin Dm - PO Q6H PRN COUGH Hydroxyzine Pamoate 50 mg 07/21/16 15:54 07/26/16 06:55 Vistaril - PO 50 mg Q4H PRN Administration ANXIETY Ibuprofen 400 mg 07/19/16 13:28 07/25/16 20:32 Motrin - PO 400 mg Q6H PRN Administration PAIN Levofloxacin 500 mg 07/20/16 06:00 07/26/16 06:55 Levaquin - PO 500 mg DAILY@0600 IMELDA Administration Loperamide HCl 4 mg 07/19/16 13:28 Imodium - PO Q6H PRN DIARRHEA Magnesium Hydroxide 30 ml 07/19/16 13:28 Milk Of Magnesia - PO DAILY PRN CONSTIPATION Nicotine 21 mg 07/20/16 10:00 07/26/16 09:53 Nicoderm Patch - TD Not Given DAILY IMELDA Nicotine Polacrilex 2 mg 07/19/16 13:28 Nicorette Gum - BUC Q2H PRN NICOTINE REPLACEMENT RX Multivit/Folic Acid/Iron 1 tab 07/20/16 10:00 07/26/16 09:52 Vitamins (Sjr) - PO 1 tab DAILY IMELDA Administration Pseudoephedrine/Triprolidine 1 combo 07/19/16 13:28 Actifed - PO TID PRN NASAL CONGESTION Thiamine HCl 100 mg 07/19/16 22:00 07/25/16 21:32 Vitamin B1 - PO 100 mg HS IMELDA Administration Trazodone HCl 50 mg 07/23/16 22:00 07/25/16 21:32 Desyrel - PO 50 mg HS IMELDA Administration Medication(s) Change(s): No changes.Patient requests scripts for trazodone and lexapro.Side effects/benefits discussed with the patient.Mr Delaney is made aware of the risk of sexual dysfunction/suicidal ideation (lexapro) and priapism (trazodone).He is advised to stop taking trazodone/seek immediate medical attention if occurrence of painful/prolonged erection.Information is reportedly understood and the patient agrees,verbally,to take these medications.Scripts sent to [facility] for lexapro 10 mg po daily (10 mg tab # 30) + trazodone 50 mg po hs (50 mg tab # 30). Current Side Effect: No Lab tests ordered: No Lab tests reviewed: Yes Provider note:: Patient has made a request for his immediate discharge.He feels that his toothache is not addressed with " strong enough medications ".Mr Delaney argues that motrin is ineffective.He decides,on that ground alone,to leave this program.Patient is encouraged to stay but he refuses to reconsider.He states that he is " going straight " to a dentist for immediate care.Mr Delaney informs that he is domiciled,that he has good support from relatives/friends and he rejects referrals offered by the social work coordinator.He only accepts scripts for lexapro and trazodone.Medications are well tolerated.No report of adverse events.Hospital course is benign.The patient is in good control.No evidence of psychosis or renay.No suicidal or homicidal ideation, intent or plan.Mr Delaney is at his baseline.MSE completed.See report.Medical attending,Dr Lee,is contacted :no medical issues.Patient is stable for discharge.Discussed with nurses on duty. Total face to face time:: 45 Mental Status Exam - Mental Status Exam Alert and Oriented to: Time, Place, Person Cognitive Function: Good Patient Appearance: Well Groomed Mood: Hopeful, Euthymic Affect: Appropriate, Normal Range Patient Behavior: Appropriate, Cooperative Speech Pattern: Clear, Appropriate Voice Loudness: Normal Thought Process: Intact Thought Disorder: Not Present Hallucinations: Denies Suicidal Ideation: Denies Homicidal Ideation: Denies Insight/Judgement: Fair Sleep: Well Appetite: Good Muscle strength/Tone: Normal Gait/Station: Normal Psychiatric Treatment Plan - Problem List (1) CHELO (generalized anxiety disorder) Current Visit: Yes (2) Opioid dependence Current Visit: Yes (3) Cocaine dependence Current Visit: No Qualifiers: Substance use status: uncomplicated Qualified Code(s): F14.20 - Cocaine dependence, uncomplicated
--- NOTE | 2016-07-26 13:48 | PN ---
[facility] Progress Note Note: PATIENT WAS TREATED FOR UTI WITH LEVAQUIN,COMPLETED THE COURSE OF ANTIBIOTICS, ASYMPTOMATIC, BEING DISCHARGED BY PSYCHIATRIST,ADVISE FLUID,FOLLOW UP WITH PMD FOR MEDICAL PROBLEM UPON DISCHARGE AND OWN PSYCHIATRIST
== END 2016-07-26 13:50 | disposition home or self-care (01) | DRG 772 ==
LOC: YASAS 12:35 → Y5N 12:37 → UNDOADMIN 12:37 → Y5N 12:49
PROVIDERS: ADMIT Psychiatry & Neurology Psychiatry; ATTEND Psychiatry & Neurology Psychiatry
PROC: HZ42ZZZ Group Counseling for Substance Abuse Treatment, Cognitive-Behavioral (ICD-10-PCS; principal; 2016-07-26)
DX: F11.23 Opioid dependence with withdrawal (principal); F14.20 Cocaine dependence, uncomplicated; F41.1 Generalized anxiety disorder
CPT/HCPCS: 36415; 80053; 81003; 81015; 85025; 86593